=== PATIENT | male | born 1960 ===

== ENCOUNTER → 2019-10-02 13:22 | Outpatient (CLI) | payer OTHER | END | disposition home or self-care (01) | LOC: EKG 13:22 | DX: Z95.2 Presence of prosthetic heart valve (principal) ==

== ENCOUNTER 2020-03-02 08:44 | Outpatient (CLI) | payer OTHER | END 2020-03-02 08:51 | disposition home or self-care (01) | LOC: RX STUDY 08:44 | DX: C19 Malignant neoplasm of rectosigmoid junction (principal) ==

== ENCOUNTER → 2021-01-13 | Outpatient (CLI) | payer OTHER | END | disposition home or self-care (01) | LOC: TOM 10:20 | DX: R10.84 Generalized abdominal pain (principal); R07.89 Other chest pain; C18.9 Malignant neoplasm of colon, unspecified ==